=== PATIENT | female | born 1980 | race Caucasian/White ===

== ENCOUNTER 2024-01-21 15:57 | Emergency (ER) | payer MEDICARE, MEDICAID ==
[~2024-01-21] VITALS: Ht 167.6 cm; Wt 69.8 kg
[2024-01-21] MEDS ORDERED: PROZAC10 MG PO (17:30)
[2024-01-21] MEDS ORDERED: ABILIFY2 MG PO (17:30)
[2024-01-21] MEDS ORDERED: CLONAZEPAM1 MG PO ×2 (17:30→18:24)
[2024-01-21] MEDS ORDERED: STRATTERA10 MG PO (17:31)
[2024-01-21 18:35] VITALS: BP 114/68
== END 2024-01-21 18:35 | disposition home or self-care (01) ==
LOC: ED 15:57
DX: F41.9 Anxiety disorder, unspecified (principal); F32.A Depression, unspecified; Z79.899 Other long term (current) drug therapy
CPT/HCPCS: 99283